=== PATIENT | female | born 1955 | race Caucasian/White ===

== ENCOUNTER 2022-12-05 06:53 | Day surgery (SDC) | payer OTHER, MEDICAID ==
[~2022-12-05] VITALS: Ht 167.6 cm; Wt 89.4 kg
[2022-12-05] MEDS ORDERED: MEPERIDINE HCL/PF 25 MG/ML DISP.SYRIN ONE (07:38)
[2022-12-05] MEDS ORDERED: MIDAZOLAM HCL 5 MG/5 ML VIAL ONE (07:38)
[2022-12-05 15:06] VITALS: BP_SYST 136
== END 2022-12-05 10:24 | disposition home or self-care (01) ==
LOC: SOR 06:53 → SMU 06:55 → SOR 10:24
PROVIDERS: ATTEND Internal Medicine Gastroenterology
DX: K74.60 Unspecified cirrhosis of liver (principal); K29.50 Unspecified chronic gastritis without bleeding; I13.0 Hypertensive heart and chronic kidney disease with heart failure and stage 1 through stage 4 chronic kidney disease, or unspecified chronic kidney disease; I50.9 Heart failure, unspecified; E11.22 Type 2 diabetes mellitus with diabetic chronic kidney disease; N18.4 Chronic kidney disease, stage 4 (severe); I25.10 Atherosclerotic heart disease of native coronary artery without angina pectoris; Z79.01 Long term (current) use of anticoagulants; Z79.899 Other long term (current) drug therapy; Z20.822 Contact with and (suspected) exposure to COVID-19
CPT/HCPCS: 43239; 87426; 87081; 82962; 36415; 88305; 88312; 88313; G0378; J2250; J2175